=== PATIENT | female | born 1995 | race Two or more races ===

== ENCOUNTER 2020-04-25 19:46 | Observation (INO) | payer OTHER ==
[~2020-04-25] VITALS: Ht 154.9 cm; Wt 60.0 kg
[2020-04-25 20:16] LABS: BILIRUBIN,URINE NEGATIVE (NEG); CLARITY,URINE CLEAR; COLOR,URINE YELLOW; NITRITE,URINE NEGATIVE (NEG); PROTEIN,URINE NEGATIVE (NEG-TRACE); UROBILINOGEN,URINE 0.2 mg/dL (0.2 mg/dL)
[2020-04-25 20:25] LABS: AMORPHOUS SEDIMENT,UR PRESENT /HPF; BACTERIA,URINE FEW /HPF (0-FEW)
[2020-04-25 20:26] LABS: RBC,URINE 0 /HPF (0-2)
[2020-04-25 20:44] LABS: BASO % 0 % (0-3); EOS # 0.1 x10^3/uL (0.0-0.7); EOS % 1 % (0-3); LYMPH % 45 % (24-48); MEAN CORPUSCULAR HEMOGLOBIN 31 pg (25-35); MEAN CORPUSCULAR HGB CONC 33 g/dL (31-37); MEAN CORPUSCULAR VOLUME 94 fL (79-100); MONO # 0.5 x10^3/uL (0.0-1.1); MONO % 6 % (0-9); NEUT # 4.2 x10^3/uL (1.8-7.7); NEUT % 48 % (31-73); PLATELET COUNT 242 x10^3/uL (140-400); RED BLOOD COUNT 4.47 x10^6/uL (3.50-5.40); RED CELL DISTRIBUTION WIDTH 12.9 % (11.5-14.5); WHITE BLOOD COUNT 8.9 x10^3/uL (4.0-11.0)
--- NOTE | 2020-04-25 22:18 | ED.ADGEN ---
Past Medical History Past Medical History: No Pertinent History Past Surgical History: Other Smoking Status: Never Smoker Alcohol Use: None General Adult EDM: Chief Complaint: VAGINAL BLEEDING HPI: HPI: Patient is a 25 year old female, accompanied by her , who presents to the emergency department with complaints of light vaginal bleeding, low back pain, and lower abdominal pain that began today. Patient states she is currently , her last menstrual cycle was on January 242019. She is 2, para 1. She denies any dysuria, hematuria, increased urinary frequency. The patient reports that she did have some spotting 1 month ago but then it stopped until 1600 this afternoon when she began having light vaginal bleeding again. She has been seen at the [facility] and had 2 ultrasounds, patient's reports that there was no heart activity at her ultrasound 2 d ays ago and that they are supposed to follow-up in the clinic on Tuesday for another ultrasound. The patient currently rates her pain 8 out of 10 on the pain scale, she denies any alleviating factors. Review of Systems: Review of Systems: Complete ROS is negative unless otherwise noted in HPI. Allergies: Allergies: Allergies Coded Allergies Type Severity Reaction Last Updated Verified No Known Drug Allergies 04/25/20 No Physical Exam: PE: See Above Constitutional: Well developed, well nourished, no acute distress, non-toxic appearance. [] HENT: Normocephalic, atraumatic, bilateral external ears normal, nose normal. [] Eyes: PERRLA, EOMI, conjunctiva normal, no discharge. [] Neck: Normal range of motion, no stridor. [] Cardiovascular:Heart rate regular rhythm Lungs & Thorax: Respirations even and unlabored, no retractions, no respiratory distress Abdomen: soft, no tenderness Skin: Warm, dry, no erythema, no rash. [] Extremities: No cyanosis, ROM intact, no edema. [] Neurologic: Alert and oriented X 3, no focal deficits noted. [] Psychologic: Affect normal, judgement normal, mood normal. [] Current Patient Data: Labs: Laboratory Tests Test 04/25/20 19:53 04/25/20 19:55 04/25/20 20:32 Urine Collection Type Unknown Urine Color Yellow Urine Clarity Clear Urine pH 7.0 (<5.0-8.0) Urine Specific [place] 1.025 (1.000-1.030) Urine Protein Negative mg/dL (NEG-TRACE) Urine Glucose (UA) Negative mg/dL (NEG) Urine Ketones (Stick) Negative mg/dL (NEG) Urine Blood Moderate (NEG) Urine Nitrite Negative (NEG) Urine Bilirubin Negative (NEG) Urine Urobilinogen Dipstick 0.2 mg/dL (0.2 mg/dL) Urine Leukocyte Esterase Negative (NEG) Urine RBC 0 /HPF (0-2) Urine WBC 1-4 /HPF (0-4) Urine Squamous Epithelial Cells Mod /LPF Urine Amorphous Sediment Present /HPF Urine Bacteria Few /HPF (0-FEW) Urine Mucus Slight /LPF POC Urine HCG, Qualitative Hcg positive (Negative) White Blood Count 8.9 x10^3/uL (4.0-11.0) Red Blood Count 4.47 x10^6/uL (3.50-5.40) Hemoglobin 14.0 g/dL (12.0-15.5) Hematocrit 42.0 % (36.0-47.0) Mean Corpuscular Volume 94 fL (79-100) Mean Corpuscular Hemoglobin 31 pg (25-35) Mean Corpuscular Hemoglobin Concent 33 g/dL (31-37) Red Cell Distribution Width 12.9 % (11.5-14.5) Platelet Count 242 x10^3/uL (140-400) Neutrophils (%) (Auto) 48 % (31-73) Lymphocytes (%) (Auto) 45 % (24-48) Monocytes (%) (Auto) 6 % (0-9) Eosinophils (%) (Auto) 1 % (0-3) Basophils (%) (Auto) 0 % (0-3) Neutrophils # (Auto) 4.2 x10^3/uL (1.8-7.7) Lymphocytes # (Auto) 4.0 x10^3/uL (1.0-4.8) Monocytes # (Auto) 0.5 x10^3/uL (0.0-1.1) Eosinophils # (Auto) 0.1 x10^3/uL (0.0-0.7) Basophils # (Auto) 0.0 x10^3/uL (0.0-0.2) Maternal Serum HCG Beta Subunit 9455 mIU/mL (0-5) H Laboratory Tests 04/25/20 20:32 Vital Signs: Vital Signs Date Time Temp Pulse Resp B/P (MAP) Pulse Ox O2 Delivery O2 Flow Rate FiO2 04/25/20 20:42 98.3 88 16 114/74 (87) 98 Room Air 98.3 EKG: EKG: [] Heart Score: Risk Factors: Risk Factors: DM, Current or recent (<one month) smoker, HTN, HLP, family history of CAD, obesity. Risk Scores: Score 0 - 3: 2.5% MACE over next 6 weeks - Discharge Home Score 4 - 6: 20.3% MACE over next 6 weeks - Admit for Clinical Observation Score 7 - 10: 72.7% MACE over next 6 weeks - Early Invasive Strategies Radiology/Procedures: Radiology/Procedures: PROCEDURE: PREG 1ST TRIMESTER Obstetric ultrasound less than 14 weeks: Reason for examination: Vaginal bleeding with . Transvaginal ultrasound examination of the pelvis was performed. Uterus measures 11 x 7.1 x 5.7 cm in greatest dimensions. Single viable intrauterine gestation is present. The gestational sac has a normal contour. There is a small subchorionic hemorrhage present. pole shows a crown-rump length of 1.16 cm corresponding to gestational age of 7 weeks 2 days. A yolk sac is not identified. No cardiac activity is identified. There is a small am ount of fluid in the cervix. Right ovary is not visualized. Left ovary measures 2.6 x 1.8 x 1.5 cm in greatest dimension and shows normal vascular flow. IMPRESSION: Intrauterine gestation with a gestational age of 7 weeks 2 days but no cardiac activity present and no yolk sac identified. Fluid present in the cervix. [] Course & Med Decision Making: Course & Med Decision Making Pertinent Labs and Imaging studies reviewed. (See chart for details) [id number] spoke with Dr. Nunez who is the OB on-call and advised of the patient in the emergency room. I informed him that I had notified the patient of the demise. The patient stated that she would like to have a D&C she does not want to go home. Per Dr. Nunez, I will admit the patient to OB as observation status and inform the patient that the D&C will be tomorrow morning. [] Helen Disclaimer: Helen Disclaimer: This electronic medical record was generated, in whole or in part, using a voice recognition dictation system. Departure Departure Impression: Primary Impression: demise before 20 weeks with retention of fetus Disposition: ADMITTED INPT THIS HOSP Admitting Physician: ADRIANA Deng) Condition: STABLE Referrals: NO PCP (PCP) NOA VAZQUEZ APRN Apr 25, 2020 22:18
--- NOTE | 2020-04-25 22:25 | RAD ---
Obstetric ultrasound less than 14 weeks: Reason for examination: Vaginal bleeding with . Transvaginal ultrasound examination of the pelvis was performed. Uterus measures 11 x 7.1 x 5.7 cm in greatest dimensions. Single viable intrauterine gestation is pre sent. The gestational sac has a normal contour. There is a small subchorionic hemorrhage present. Fet al pole shows a crown-rump length of 1.16 cm corresponding to gestational age of 7 weeks 2 days. A yo lk sac is not identified. No cardiac activity is identified. There is a small amount of fluid i n the cervix. Right ovary is not visualized. Left ovary measures 2.6 x 1.8 x 1.5 cm in greatest dimension and shows normal vascular flow. IMPRESSION: Intrauterine gestation with a gestational age of 7 weeks 2 days but no cardiac activity present and no yolk sac identified. Fluid present in the cervix. Electronically signed by: Rani Ji MD (04/25/2020 10:22 PM) WENDIE
[2020-04-25] MEDS ORDERED: 0.9 % SODIUM CHLORIDE 10 ML DISP.SYRIN. IV PRN (23:30)
[2020-04-26] MEDS ORDERED: IV NORMAL SALINE 1000ML BAG 1,000 ML IV SCH (00:45)
[2020-04-26 01:31] VITALS: BP 95/55
--- NOTE | 2020-04-26 01:42 | NUR ---
report recievd pt not to unit yet Addendum: 04/26/20 at 0143 by JOSE PIERCE RN Amended: Links added.
--- NOTE | 2020-04-26 01:43 | NUR ---
pt arrived to unit at 0025 per cart from ER. Pt settled in room. IVF started at 100ml/hr. Called human resources consultant line for consents and plan of care. On hold from [phone] to [phone]. Tree Sapper Navya #[id number] answered at [phone] plan of care, and consents done. Patient denies any needs or questions. Pt nowtrying to sleep
[2020-04-26 05:11] VITALS: BP 92/51
[2020-04-26 07:10] VITALS: BP 96/48
[2020-04-26] MEDS ORDERED: VASOPRESSIN 20 UNIT/ML VIAL. ONE (08:18)
--- NOTE | 2020-04-26 08:31 | PDOC1 ---
OB - History Hx of Present Care: None Ultrasounds: No ultrasounds Obstetrical Complications: None Medical Complications: None Past Family/Social History * Past Medical, Surgical, Family and Obstetric Histories reviewed from chart. Blood Type: Unknown Rubella: Unknown RPR/VDRL: Unknown GBS Status: Unknown HBsAG: Unknown OB - Chief Complaint & HPI Date of Admission: Date of Admission: Apr 25, 2020 at 23:13 Chief Complaint/History : 2 Para: 1 EGA: 7 Reason for admission: other ( demise) Admission Nurse Assessment Rev: Yes OB - Admission Exam Physical Exam Vitals: VS - Last 72 Hours, by Label Date Time Temp Pulse Resp B/P (MAP) Pulse Ox O2 Delivery O2 Flow Rate FiO2 04/26/20 07:10 98.6 84 16 96/48 (64) Room Air 98.6 04/26/20 05:11 97.9 77 18 92/51 (65) 100 Room Air 97.9 04/26/20 01:31 97.9 84 18 95/55 (68) 100 Room Air 97.9 04/26/20 00:00 79 92/55 (67) 99 Room Air 04/25/20 22:30 81 98/64 (75) 99 Room Air 04/25/20 22:00 80 102/65 (77) 99 Room Air 04/25/20 21:30 78 89/49 (62) 100 Room Air 04/25/20 21:00 86 99/63 (75) 100 Room Air 04/25/20 20:42 98.3 88 16 114/74 (87) 98 Room Air 98.3 04/25/20 20:30 86 114/74 (87) 100 Room Air HEENT: Normal Heart: Regular Rate Lungs: Clear Abdomen: Gravid, Non tender, Soft Extremities: No tenderness or swelling Reflexes: Normal Cervical Dilatation: 1cm Effacement: 25% Station: -3 Membranes: Intact Contractions on Admission: None Text A: Demise at 7 wks P: Plan for suction D&C. F/u in 1 wk DEXTER HASKINS Jr, MD Apr 26, 2020 08:31
--- NOTE | 2020-04-26 08:40 | NUR ---
Pt. transferred down to Pre-op, any questions were answered with the staff electronic warfare officer phone at this time. VSS. Belongings and significant other go with pt.
[2020-04-26] MEDS ORDERED: ceFAZolin SODIUM IV Push 1 GM VIAL. IVP ONE (09:00)
[2020-04-26] MEDS ORDERED: DEXAMETHASONE SOD PHOS 4 MG/ML VIAL ONE (09:06)
[2020-04-26] MEDS ORDERED: KETOROLAC 30 MG/ML VIAL. ONE (09:06)
[2020-04-26] MEDS ORDERED: PROPOFOL 10 MG/ML (20ML) VIAL. IV ONE (09:06)
[2020-04-26] MEDS ORDERED: ONDANSETRON PF 4 MG/2 ML VIAL. ONE (09:06)
[2020-04-26] MEDS ORDERED: LIDOCAINE 2% PF 5 ML VIAL. ONE (09:06)
[2020-04-26] MEDS ORDERED: SEVOFLURANE 31 TO 60 MINUTES. IH ONE (09:06)
--- NOTE | 2020-04-26 09:24 | PDOC ---
BRIEF OPERATIVE NOTE Date: Apr 26, 2020 Pre-Op Diagnosis Missed Post-Op Diagnosis Same Procedure Performed Suction D&C Surgeon Dr. Nunez Anesthesia Type: General Blood Loss 100 ml Specimens Obtained POC Findings POC Complications none Operative Note see dictation DEXTER NUNEZ Jr, MD Apr 26, 2020 09:24
--- NOTE | 2020-04-26 09:26 | DISCH ---
DISCHARGE INSTRUCTIONS Condition on Discharge Condition on Discharge: Stable Activity After Discharge Activity Instructions for Disc: Activity as tolerated Lifting Instructions after Dis: No heavy lifting Driving Instructions after Dis: Do not drive today Diet after Discharge Diet after Discharge: Regular Contacting the DRDuncan after DC Call your doctor for: Concerns you may have Follow-Up Follow up with: Dr. Nunez in 1 week. DEXTER NUNEZ Jr, MD Apr 26, 2020 09:26
--- NOTE | 2020-04-26 09:38 | OP ---
DATE OF SURGERY: PREOPERATIVE DIAGNOSIS: Missed . POSTOPERATIVE DIAGNOSIS: Missed . PROCEDURE: Suction D and C. SURGEON: Gianluca Nunez MD ANESTHESIA: GETA. ESTIMATED BLOOD LOSS: 100 mL. COMPLICATIONS: None. FINDINGS: Products of conception. SUMMARY: A 25-year-old 2, para 1, 7 weeks missed that was diagnosed over a week ago. The patient came into the Emergency Department with abdominal cramping and light vaginal spotting. The patient was admitted and counseled on risks, benefits and expectations of suction D and C for missed and voiced clear understanding to proceed. This was done with the chalk tester phone. DESCRIPTION OF PROCEDURE: The patient was taken to surgery suite and placed in dorsal lithotomy position. She was prepped with Betadine solution and draped in sterile fashion. After adequate anesthesia, weighted speculum and curved Chamberlain placed vaginally. Anterior lip of the cervix grasped with single tooth tenaculum. The cervix was dilated with Hegar dilators up to size 8. The 8 mm curved tip suction curette was then passed using a suction pressure of 55 mmHg rotated in a circumferential manner, removing blood products and products of conception. Sharp curettage took place until a fine gritty surface was palpated circumferentially. Suction curette was passed once again removing additional products of conception and blood products. Uterus palpated firm. Single tooth tenaculum and weighted speculum were removed. The patient tolerated the procedure well and was taken to recovery room in stable condition. Sponge and needle count correct x 3. GIANLUCA NUNEZ MD DR: NATY/rafael JOB#: [id number] / [id number]
[2020-04-26] MEDS ORDERED: MORPHINE SULFATE 2 MG/ML VIAL. IVP PRN (09:45)
[2020-04-26] MEDS ORDERED: IV RINGERS,LACTATED 1000ML 1,000 ML IV SCH (09:45)
[2020-04-26] MEDS ORDERED: HYDROmorphone 2 MG/ML VIAL IVP PRN (09:45)
[2020-04-26] MEDS ORDERED: PROCHLORPERAZINE 10 MG/2 ML VIAL. IVP PRN (09:45)
[2020-04-26] MEDS ORDERED: fentaNYL PF VIAL 100 MCG/2 ML VIAL IVP PRN (09:45)
[2020-04-26] MEDS ORDERED: OXYC-325 PO (09:46)
[2020-04-26] MEDS ORDERED: fentaNYL PF VIAL 100 MCG/2 ML VIAL ONE (09:46)
[2020-04-26] MEDS: fentaNYL PF VIAL 100 MCG/2 ML VIAL IVP PRN ×2 (09:52→10:00)
[2020-04-26 10:11] VITALS: BP 95/55
[2020-04-26] MEDS ORDERED: oxyCODONE/APAP 5/325 1 TAB TABLET ONE (10:30)
[2020-04-26] MEDS ORDERED: oxyCODONE/APAP 5/325 1 TAB TABLET PO ONE (10:45)
== END 2020-04-26 10:42 | disposition home or self-care (01) ==
LOC: ER 19:46 → 3 NORTH 23:13
PROVIDERS: ADMIT Obstetrics & Gynecology; ATTEND Obstetrics & Gynecology
DX: O02.1 Missed abortion (principal); Z20.828 Contact with and (suspected) exposure to other viral communicable diseases; Z3A.01 Less than 8 weeks gestation of pregnancy
CPT/HCPCS: 36415; 59820; 76801; 81001; 81025; 84702; 85025; 86900; 86901; 87426; 96360; 96361; 99284; G0378; J0690; J1100; J1885; J2405; J2704; J3010; J7030; U0003; 88305; G0379; J3490